=== PATIENT | female | born 1940 | race Caucasian/White ===

== ENCOUNTER 2023-09-12 14:17 | Inpatient (IN) | payer OTHER ==
[2023-09-12 15:52] LABS: #Monocytes 0.7 thou/uL (0.11-0.59); #Neutrophils 7.7 thou/uL (1.40-6.50); %Basophils 0.3 % (0.0-1.0); %Lymphocytes 13.6 % (21.0-51.0); %Monocytes 6.8 % (0.0-10.0); %Neutrophils 78.9 % (42.0-75.0); Hematocrit 46.7 % (36.0-47.0); Hemoglobin 15.2 g/dL (12.0-16.0); Mean Corpuscular HGB CONC 32.5 g/dL (32.0-36.0); Mean Corpuscular Hemoglobin 31.3 pg (27.0-31.0); Mean Corpuscular Volume 96.1 fl (78.0-98.0); Mean Platelet Volume 9.6 fL (7.4-10.4); Platelet Count 241 10x3/uL (130-400); RBC Distribution Width 13.4 % (11.5-14.5); Red Blood Cell (RBC) Count 4.86 mill/uL (4.20-5.40); White Blood Cell (WBC) Count 9.7 10x3/uL (4.8-10.8)
[2023-09-12 16:23] LABS: Acetaminophen Less than 10 mcg/mL (10.0-30.0); Alcohol Less than 10.0 mg/dL (Less than 10); Lipase 25 U/L (8-78); Salicylate Less than 8.0 mg/dL (15.0-30.0)
[2023-09-12 16:24] LABS: ALT (SGPT) 12 U/L (8-55); AST (SGOT) 23 U/L (5-34); Albumin 3.7 g/dL (3.4-4.8); Alkaline Phosphatase 67 U/L (40-110); Anion Gap 24 mmol/L (10-20); BUN (Urea Nitrogen) 20 mg/dL (9.8-20.1); Bilirubin, Total 0.4 mg/dL (0.2-1.2); CK (CPK) 67 U/L (29-168); Calc. Creatinine Clearance 0 mL/min (70-130); Calcium 8.8 mg/dL (7.8-10.44); Carbon Dioxide 17 mmol/L (23-31); Chloride 98 mmol/L (98-107); Estimated GFR 31; Globulin 3.9 g/dL (2.4-3.5); Glucose 268 mg/dL (83-110); Protein, Total 7.6 g/dL (5.8-8.1); Sodium 134 mmol/L (136-145)
[2023-09-12 16:28] LABS: Troponin I 0.021 ng/mL (< 0.028)
[2023-09-12 17:20] LABS: Amphetamine Not Detected (NotDetected); Barbiturates Screen Not Detected (NotDetected); Benzodiazepine Screen Not Detected (NotDetected); Cocaine Metabolite Screen Not Detected (NotDetected); Methadone Not Detected (NotDetected); Methamphetamine Not Detected (NotDetected); Opiate Screen Not Detected (NotDetected); Oxycodone Screen Not Detected (NotDetected); Phencyclidine (PCP) Not Detected (NotDetected); THC/Cannabinoid Screen Not Detected (NotDetected); Tricyclic Screen Not Detected (NotDetected)
[2023-09-12 17:22] LABS: Bilirubin Negative (Negative); Blood, Urine Moderate (Negative); Glucose, Urine (Dipstick) Negative (Negative); Ketone, Urine Trace mg/dL (Negative); Leukocyte Small (Negative); Nitrite Negative (Negative); Protein, Urine (Dipstick) 100 mg/dL (Neg-Trace); Urobilinogen 0.2 mg/dL (Less than 2); pH, Urine 5.5 (5.0-9.0)
[2023-09-12 17:27] LABS: Specific Gravity, Urine Greater/Equal 1.030 (1.005-1.030)
[2023-09-12 17:31] LABS: Clarity Turbid (Clear)
[2023-09-12 17:34] LABS: Bacteria/HPF 4+ HPF (None Seen); CAUTI Indications for Culture Alt mental st,lethar; RBC/HPF Greater than 50 HPF (0-3); WBC/HPF Greater than 50 HPF (0-3)
[2023-09-12 17:35] LABS: Urine Culture Reflex Yes Yes
[2023-09-12] MEDS ORDERED: Sodium Chloride 0.9% 100 ML ONE (18:21)
[2023-09-12] MEDS ORDERED: cefTRIAXone (ROCEPHIN) 1 GM VIAL ONE (18:21)
[2023-09-12] MEDS ORDERED: Acetaminophen 325 MG TAB PO PRN (19:46)
[2023-09-12] MEDS ORDERED: Ondansetron PF 4 MG/2 ML Vial IVP PRN (19:46)
[2023-09-12] MEDS ORDERED: HumaLOG 300 UNITS/3 ML VIAL SC PRN ×2 (19:50)
[2023-09-12] MEDS ORDERED: Dextrose 50% Abboject 50 ML SYRINGE SLOW IVP PRN (19:50)
[2023-09-12] MEDS ORDERED: Glucagon 1 MG/ML KIT IM PRN (19:50)
[2023-09-12] MEDS ORDERED: Dextrose 5% in Water 1,000 ML IV PRN (19:50)
[2023-09-12] MEDS ORDERED: Sodium Chloride 0.9% 1,000 ML IV SCH (20:00)
[2023-09-12 20:12] VITALS: BMI 22.8
[2023-09-12] MEDS: Famotidine 20 MG TAB PO SCH (20:29)
[2023-09-12 20:47] LABS: Lactic Acid 1.5 mmol/L (0.5-2.2)
[2023-09-12 23:20] LABS: Anion Gap 14 mmol/L (10-20); BUN (Urea Nitrogen) 24 mg/dL (9.8-20.1); Calc. Creatinine Clearance 39 mL/min (70-130); Calcium 7.9 mg/dL (7.8-10.44); Carbon Dioxide 18 mmol/L (23-31); Chloride 107 mmol/L (98-107); Estimated GFR 56; Glucose 152 mg/dL (83-110); Potassium 3.8 mmol/L (3.5-5.1); Sodium 135 mmol/L (136-145)
[2023-09-12 23:31] LABS: Bacteria/HPF 4+ HPF (None Seen); Bilirubin Negative (Negative); Blood, Urine 1+ (Negative); CAUTI Indications for Culture Alt mental st,lethar; Clarity Turbid (Clear); Glucose, Urine (Dipstick) Greater than 1000 mg/dL (Negative); Ketone, Urine 10 mg/dL (Negative); Leukocyte 500 Leu/uL (Negative); Nitrite Negative (Negative); Protein, Urine (Dipstick) 30 mg/dL (Neg-Trace); Specific Gravity, Urine 1.019 (1.002-1.036); Squamous Epithelial 0-3 HPF (0-3); Urobilinogen Normal mg/dL (Less than 2); WBC/HPF Greater than 50 HPF (0-3); Yeast-Budding 2+ HPF (None Seen); Yeast-Hyphae 1+ HPF (None Seen)
[2023-09-13] MEDS ORDERED: Polyethylene Glycol 3350 17 GM Packet PO PRN (05:33)
[2023-09-13] MEDS: Famotidine 20 MG TAB PO SCH (08:57)
[2023-09-13 11:25] LABS: #Monocytes 0.4 thou/uL (0.11-0.59); #Neutrophils 4.1 thou/uL (1.40-6.50); %Basophils 0.5 % (0.0-1.0); %Eosinophils 0.6 % (0.0-10.0); %Lymphocytes 26.5 % (21.0-51.0); %Monocytes 6.2 % (0.0-10.0); Hematocrit 42.2 % (36.0-47.0); Hemoglobin 13.6 g/dL (12.0-16.0); Mean Corpuscular HGB CONC 32.2 g/dL (32.0-36.0); Mean Corpuscular Hemoglobin 31.1 pg (27.0-31.0); Mean Corpuscular Volume 96.6 fl (78.0-98.0); Mean Platelet Volume 9.3 fL (7.4-10.4); Platelet Count 197 10x3/uL (130-400); RBC Distribution Width 13.3 % (11.5-14.5); Red Blood Cell (RBC) Count 4.37 mill/uL (4.20-5.40); White Blood Cell (WBC) Count 6.2 10x3/uL (4.8-10.8)
[2023-09-13 11:46] LABS: Anion Gap 15 mmol/L (10-20); BUN (Urea Nitrogen) 20 mg/dL (9.8-20.1); Calc. Creatinine Clearance 47 mL/min (70-130); Calcium 8.5 mg/dL (7.8-10.44); Carbon Dioxide 20 mmol/L (23-31); Chloride 106 mmol/L (98-107); Estimated GFR 70; Glucose 155 mg/dL (83-110); Potassium 3.5 mmol/L (3.5-5.1); Sodium 137 mmol/L (136-145)
[2023-09-13] MEDS ORDERED: cefTRIAXone\\ROCEPHIN 1 GM in Sodium Chloride 0.9% 100 ML IVPB SCH (18:00)
[2023-09-14 06:17] LABS: #Monocytes 0.4 thou/uL (0.11-0.59); %Basophils 0.4 % (0.0-1.0); %Eosinophils 0.7 % (0.0-10.0); %Lymphocytes 35.7 % (21.0-51.0); Hematocrit 41.3 % (36.0-47.0); Hemoglobin 13.3 g/dL (12.0-16.0); Mean Corpuscular HGB CONC 32.2 g/dL (32.0-36.0); Mean Corpuscular Hemoglobin 31.1 pg (27.0-31.0); Mean Corpuscular Volume 96.5 fl (78.0-98.0); Mean Platelet Volume 9.6 fL (7.4-10.4); Platelet Count 202 10x3/uL (130-400); RBC Distribution Width 13.4 % (11.5-14.5); Red Blood Cell (RBC) Count 4.28 mill/uL (4.20-5.40); White Blood Cell (WBC) Count 5.4 10x3/uL (4.8-10.8)
[2023-09-14 06:55] LABS: Anion Gap 11 mmol/L (10-20); BUN (Urea Nitrogen) 20 mg/dL (9.8-20.1); Calc. Creatinine Clearance 43 mL/min (70-130); Calcium 8.3 mg/dL (7.8-10.44); Carbon Dioxide 23 mmol/L (23-31); Chloride 109 mmol/L (98-107); Estimated GFR 64; Glucose 180 mg/dL (83-110); Potassium 3.7 mmol/L (3.5-5.1); Sodium 139 mmol/L (136-145)
[2023-09-14] MEDS ORDERED: Famotidine 20 MG TAB PO SCH (09:00)
[2023-09-14 12:57] VITALS: BP 122/69; TEMP 98.3
== END 2023-09-14 13:36 | disposition home or self-care (01) | DRG 689 ==
LOC: ERS 14:17 → T4-B 19:46
PROVIDERS: ADMIT Internal Medicine; ATTEND Hospitalist
DX: N39.0 Urinary tract infection, site not specified (principal); G93.41 Metabolic encephalopathy; N17.9 Acute kidney failure, unspecified; I10 Essential (primary) hypertension; E11.65 Type 2 diabetes mellitus with hyperglycemia; F01.50 Vascular dementia, unspecified severity, without behavioral disturbance, psychotic disturbance, mood disturbance, and anxiety; Z90.710 Acquired absence of both cervix and uterus; Z98.890 Other specified postprocedural states; Z88.2 Allergy status to sulfonamides; Z79.899 Other long term (current) drug therapy
CPT/HCPCS: 36415; 36416; 51701; 70450; 71045; 80048; 80053; 80306; 80307; 81001; 82010; 82550; 83605; 83690; 84484; 85025; 87040; 87077; 87086; 87186; 93005; 96365; J0696; J3490; J7050

== ENCOUNTER 2023-11-22 15:22 | Outpatient (CLI) | payer OTHER | END 2023-11-22 15:23 | disposition home or self-care (01) | LOC: BICULT 15:22 | PROVIDERS: ATTEND Nurse Practitioner Family | DX: N30.01 Acute cystitis with hematuria (principal); N32.81 Overactive bladder; N28.9 Disorder of kidney and ureter, unspecified | CPT/HCPCS: 76770 ==

== ENCOUNTER 2023-12-06 14:26 | Outpatient (CLI) | payer OTHER ==
[~2023-12-06 14:26] MED LIST: Iopamidol 370 76% 100 ML VIAL ONE
== END 2023-12-06 14:27 | disposition home or self-care (01) ==
LOC: BICCT 14:26
PROVIDERS: ATTEND Nurse Practitioner Family
DX: N30.01 Acute cystitis with hematuria (principal); B37.31 Acute candidiasis of vulva and vagina; K21.9 Gastro-esophageal reflux disease without esophagitis; N32.81 Overactive bladder; R93.429 Abnormal radiologic findings on diagnostic imaging of unspecified kidney; R10.2 Pelvic and perineal pain; R30.0 Dysuria; K86.89 Other specified diseases of pancreas
CPT/HCPCS: 74178; Q9967

== ENCOUNTER 2024-07-22 10:57 | Outpatient (CLI) | payer OTHER ==
[2024-07-22 12:13] LABS: #Basophils 0.04 10x3/uL (0.0-0.2); %Basophils 0.5 % (0.0-1.0); %Eosinophils 4.5 % (0.0-10.0); %Lymphocytes 22.2 % (21.0-51.0); %Monocytes 4.2 % (0.0-10.0); %Neutrophils 68.2 % (42.0-75.0); Hematocrit 39.3 % (36.0-47.0); Hemoglobin 12.3 g/dL (12.0-16.0); Mean Corpuscular HGB CONC 31.3 g/dL (32.0-36.0); Mean Corpuscular Hemoglobin 30.9 pg (27.0-31.0); Mean Corpuscular Volume 98.7 fL (78.0-98.0); Mean Platelet Volume 9.3 fL (7.4-10.4); Platelet Count 228 10x3/uL (130-400); RBC Distribution Width 12.3 % (11.5-14.5); Red Blood Cell (RBC) Count 3.98 mill/uL (4.20-5.40)
[2024-07-22 12:34] LABS: Anion Gap 13 mmol/L (10-20); BUN (Urea Nitrogen) 9 mg/dL (9.8-20.1); Calc. Creatinine Clearance 0 mL/min (70-130); Calcium 9.1 mg/dL (7.8-10.44); Carbon Dioxide 25 mmol/L (23-31); Chloride 105 mmol/L (98-107); Estimated GFR 71; Glucose 147 mg/dL (83-110); Potassium 3.9 mmol/L (3.5-5.1); Sodium 139 mmol/L (136-145)
== END 2024-07-22 10:58 | disposition home or self-care (01) ==
LOC: LABBT 10:57
PROVIDERS: ATTEND Internal Medicine Cardiovascular Disease
DX: Z01.812 Encounter for preprocedural laboratory examination (principal); I25.10 Atherosclerotic heart disease of native coronary artery without angina pectoris
CPT/HCPCS: 80048; 85025; 86301

== ENCOUNTER 2024-07-23 05:34 | Day surgery (SDC) | payer OTHER ==
[2024-07-22 11:34] VITALS: BMI 23.1
[2024-07-23] MEDS ORDERED: Midazolam HCl 2 mg/2 ml Vial ONE (06:11)
[2024-07-23] MEDS ORDERED: Verapamil 5 MG/2 ML VIAL ONE (06:11)
[2024-07-23] MEDS ORDERED: fentaNYL 50 mcg/mL 1 mL Vial ONE (06:11)
[2024-07-23] MEDS ORDERED: Heparin 10,000 UNITS/ 10 ML VIAL ONE (06:11)
[2024-07-23] MEDS ORDERED: Nitroglycerin 50 MG/250 ML BOT 250 ML ONE (06:11)
[2024-07-23] MEDS ORDERED: Adenosine 6 mg (2 mL) VIAL ONE (06:11)
[2024-07-23] MEDS ORDERED: Clopidogrel Bisulfate 300 MG TAB ONE (07:44)
[2024-07-23] MEDS ORDERED: Aspirin Chewable 81 MG TAB ONE (07:52)
== END 2024-07-23 14:00 | disposition home or self-care (01) ==
LOC: CCL 05:34
PROVIDERS: ATTEND Internal Medicine Cardiovascular Disease
PROC: B200YZZ Plain Radiography of Single Coronary Artery using Other Contrast (ICD-10-PCS; principal; 2024-07-23)
PROC: 02U03JZ Supplement Coronary Artery, One Artery with Synthetic Substitute, Percutaneous Approach (ICD-10-PCS; 2024-07-23)
DX: I05.9 Rheumatic mitral valve disease, unspecified (principal)
CPT/HCPCS: 85347 ×2; 92978; 93005; C1725; C1753; C1769 ×4; C1874; C1887; C1894; C9600; J1642; J1644; J2250; 92928; 93010; 99152; 99153; J0153; J3010

== ENCOUNTER 2024-08-19 09:32 | Emergency (ER) | payer OTHER ==
[2024-08-19 11:22] LABS: Bacteria/HPF 4+ HPF (None Seen); Bilirubin Negative (Negative); Blood, Urine 3+ (Negative); CAUTI Indications for Culture Pelvic or flank pain; Clarity Turbid (Clear); Glucose, Urine (Dipstick) 30 mg/dL (Negative); Ketone, Urine Negative (Negative); Leukocyte 250 Leu/uL (Negative); Nitrite 2+ (Negative); Protein, Urine (Dipstick) 200 mg/dL (Neg-Trace); Specific Gravity, Urine 1.019 (1.002-1.036); Urobilinogen Normal mg/dL (Less than 2); WBC/HPF Greater than 50 HPF (0-3); pH, Urine 5.5 (5.0-9.0)
[2024-08-19 11:24] LABS: Urine Culture Reflex Yes Yes
[2024-08-19 11:37] LABS: Anion Gap 12 mmol/L (10-20); BUN (Urea Nitrogen) 5 mg/dL (9.8-20.1); Calc. Creatinine Clearance 0 mL/min (70-130); Carbon Dioxide 22 mmol/L (23-31); Chloride 108 mmol/L (98-107); Estimated GFR 71; Glucose 233 mg/dL (83-110); Potassium 3.8 mmol/L (3.5-5.1); Sodium 138 mmol/L (136-145)
[2024-08-19 12:21] LABS: Hemoglobin 10.3 g/dL (12.0-16.0); Mean Corpuscular HGB CONC 32.2 g/dL (32.0-36.0); Mean Corpuscular Hemoglobin 30.5 pg (27.0-31.0); Mean Corpuscular Volume 94.7 fL (78.0-98.0); Mean Platelet Volume 10.7 fL (7.4-10.4); Platelet Count 99 10x3/uL (130-400); RBC Distribution Width 14.3 % (11.5-14.5); Red Blood Cell (RBC) Count 3.38 mill/uL (4.20-5.40)
[2024-08-19 12:59] LABS: Anisocytosis MARKED = >30 cells HPF (0-5); Band 11 % (5-11); Eosinophils 2 % (0-10); Lymphocytes 22 % (21-51); Macrocytosis MODERATE=16-30 cells HPF (0-5); Monocytes 9 % (0-10); Myelocyte 1 % (0-0); Neutrophil 54 % (42-75); Platelet Adequacy Comment Platelets Decreased; Polychromasia SLIGHT = 2-3 cells HPF (0-2); Reactive Lymphocytes 1 % (0-10)
== END 2024-08-19 13:05 | disposition home or self-care (01) ==
LOC: ERS 09:32
DX: N39.0 Urinary tract infection, site not specified (principal); R53.1 Weakness; I10 Essential (primary) hypertension; E11.9 Type 2 diabetes mellitus without complications
CPT/HCPCS: 36415; 80048; 81001; 85025; 87077; 87086; 87186; 99284

== ENCOUNTER 2024-09-04 10:37 | Outpatient (CLI) | payer OTHER ==
[2024-09-04] MEDS ORDERED: Iopamidol 370 76% 100 ML VIAL ONE (10:53)
== END 2024-09-04 10:38 | disposition home or self-care (01) ==
LOC: BICCT 10:37
PROVIDERS: ATTEND Radiology Radiation Oncology
DX: C25.2 Malignant neoplasm of tail of pancreas (principal); K80.20 Calculus of gallbladder without cholecystitis without obstruction; N32.89 Other specified disorders of bladder
CPT/HCPCS: 71260; 74177; Q9967

== ENCOUNTER 2024-10-29 11:50 | Outpatient (CLI) | payer OTHER | END 2024-10-29 11:51 | disposition home or self-care (01) | LOC: MRI 11:50 | PROVIDERS: ATTEND Physical Medicine & Rehabilitation | DX: M47.26 Other spondylosis with radiculopathy, lumbar region (principal); M48.061 Spinal stenosis, lumbar region without neurogenic claudication; M48.07 Spinal stenosis, lumbosacral region; Z98.890 Other specified postprocedural states | CPT/HCPCS: 72148 ==

== ENCOUNTER 2025-05-31 07:31 | Outpatient (CLI) | payer OTHER ==
[2025-05-31 08:09] LABS: Estimated GFR - POC 55.0
[2025-05-31] MEDS ORDERED: Iopamidol 370 76% 100 ML VIAL ONE (12:36)
== END 2025-05-31 07:32 | disposition home or self-care (01) ==
LOC: CT 07:31
PROVIDERS: ATTEND Internal Medicine Hematology & Oncology
DX: C25.2 Malignant neoplasm of tail of pancreas (principal); K80.20 Calculus of gallbladder without cholecystitis without obstruction; K57.30 Diverticulosis of large intestine without perforation or abscess without bleeding; R91.8 Other nonspecific abnormal finding of lung field
CPT/HCPCS: 36415; 71260; 74177; 82565 ×2; J1642